=== PATIENT | female | born 1965 | race Caucasian/White ===

== ENCOUNTER 2019-05-22 06:23 | Emergency (ER) | payer BC ==
[~2019-05-22] VITALS: Ht 160 cm; Wt 81.2 kg
[~2019-05-22 06:23] MED LIST: CITALOPRAM HBR20 MG PO; DIOVAN HCT 1601 EACH PO; HYDROXYCHLOROQ200 MG PO; METOPROLOL SUCC25 MG PO; ZANTAC150 MG PO
[2019-05-22] MEDS ORDERED: NAPROXEN500 MG PO (06:33)
[2019-05-22] MEDS: ONDANSETRON HCL INJ 2MG/ML 2ML 2 MG/ML VIAL IV STA (06:51)
[2019-05-22] MEDS: KETOROLAC TROMETHAMINE 30 MG/ML VIAL IV STA (06:51)
[2019-05-22 07:06] LABS: BASOPHILS % 0.5 % (0.0-1.0); EOSINOPHILS % 0.7 % (0.0-6.0); HEMATOCRIT 37.5 % (34.2-44.1); HEMOGLOBIN 12.3 g/dL (12.0-16.0); LYMPHOCYTES # (AUTO) 0.6 (1.0-3.2); LYMPHOCYTES % 12.6 % (18.0-39.1); MEAN CORPUSCULAR HEMOGLOBIN 30.4 pg (28-32); MEAN CORPUSCULAR HGB CONC 32.8 g/dL (31-35); MEAN CORPUSCULAR VOLUME 92.8 fL (81-99); MONOCYTES % 0.5 % (4.4-11.3); NEUTROPHILS # (AUTO) 3.7 (2.1-6.9); PLATELET COUNT 197 x10e3/uL (140-360); RED BLOOD COUNT 4.04 x10e6/uL (3.6-5.1); RED CELL DISTRIBUTION WIDTH 12.8 % (11.7-14.4)
[2019-05-22 07:14] LABS: BILIRUBIN,URINE MODERATE (NEGATIVE); CLARITY,URINE CLOUDY (CLEAR); COLOR,URINE RED (YELLOW); KETONES,URINE TRACE (NEGATIVE); LEUKOCYTE ESTERASE ,URINE LARGE (NEGATIVE); NITRITE,URINE POSITIVE (NEGATIVE); PROTEIN,URINE DIPSTICK 3+ (NEGATIVE); URINE UROBILINOGEN 4 mg/dL (0.2 - 1)
--- NOTE | 2019-05-22 07:18 | Diagnostic Imaging Report ---
EXAMINATION: CT of the abdomen and pelvis without contrast. TECHNIQUE: Spiral CT images of the abdomen and pelvis were performed from the lung bases to the lesser trochanters. No intravenous contrast was given per renal stone protocol. Coronal and sagittal reformatted images were obtained. Low dose protocol was utilized. DLP: 593.00 mGy-cm COMPARISON: None. CLINICAL HISTORY:Flank pain DISCUSSION: ABSENCE OF INTRAVENOUS CONTRAST DECREASES SENSITIVITY FOR DETECTION OF FOCAL LESIONS AND VASCULAR PATHOLOGY. ABDOMEN/PELVIS: LOWER THORAX: Unremarkable. HEPATOBILIARY:No focal hepatic lesions. No biliary ductal dilation. Small left lobe hepatic cyst. The gallbladder is normal. SPLEEN: No splenomegaly. PANCREAS: No focal masses or ductal dilatation. ADRENALS: No adrenal nodules. KIDNEYS/URETERS: There is mild left hydronephrosis with perinephric fat stranding caused by a distal right UVJ stone measuring 2-3 mm. PELVIC ORGANS/BLADDER: The bladder is normal. PERITONEUM/RETROPERITONEUM: No free air or fluid. LYMPH NODES: No intra-abdominal,retroperitoneal, pelvic or inguinal lymphadenopathy. VESSELS: Normal GI TRACT: No distention or wall thickening. BONES AND SOFT TISSUES: No bony destructive lesions. Mild multilevel degenerative changes of the spine. No soft tissue abnormalities. IMPRESSION: Mild left hydronephrosis, left perinephric fat stranding and a distal left UVJ stone. Signed by: Dr. Saad Bal DO on 05/22/2019 7:15 AM
[2019-05-22 07:24] LABS: ALANINE AMINOTRANSFERASE 12 IU/L (0-55); ALBUMIN/GLOBULIN RATIO 1.4 (0.8-2.0); ALKALINE PHOSPHATASE 56 IU/L (40-150); ANION GAP 17.1 mmol/L (8-16); BLOOD UREA NITROGEN 28 mg/dL (7-26); BUN/CREATININE RATIO 35 (6-25); CALCIUM 9.3 mg/dL (8.4-10.2); CARBON DIOXIDE 20 mmol/L (22-29); CHLORIDE 107 mmol/L (98-107); EST GLOMERULAR FILTRATION RATE > 60 ML/MIN (60-); GLUCOSE 121 mg/dL (74-118); POTASSIUM 4.1 mmol/L (3.5-5.1); SODIUM 140 mmol/L (136-145)
[2019-05-22 07:26] LABS: AMORPHOUS SEDIMENT,URINE FEW (FEW); BACTERIA,URINE MANY /HPF; EPITHELIAL CELLS,URINE MODERATE /LPF; RBC,URINE >50 /HPF (0-5)
[2019-05-22] MEDS ORDERED: SODIUM CHLORIDE 0.9% 1000ML 1,000 ML ONE (07:49)
[2019-05-22] MEDS ORDERED: CEFTRIAXONE SOD 1 GM/NS 50 ML 50 ML IV ONE (07:50)
[2019-05-22] MEDS ORDERED: TAMSULOSIN HCL 0.4 MG CAP ONE (07:51)
[2019-05-22] MEDS: SODIUM CHLORIDE 0.9% 1000ML 1,000 ML IV ONE (07:55)
[2019-05-22] MEDS: TAMSULOSIN HCL 0.4 MG CAP PO ONE (07:56)
[2019-05-22] MEDS: CEFTRIAXONE SOD 1 GM/NS 50 ML 50 ML IV STA (07:56)
[2019-05-22 09:38] LABS: BAND NEUTROPHILS % (MANUAL) 9 %; LYMPHOCYTES % (MANUAL) 11 % (19-48); NEUTROPHILS % (MANUAL) 80 % (40-74)
[2019-05-22 09:52] LABS: ANISOCYTOSIS SLIGHT; TOXIC GRANULATION SLIGHT
[2019-05-22 09:53] LABS: PLATELET ESTIMATE ADEQUATE; PLATELET MORPHOLOGY COMMENT NORMAL; RBC MORPHOLOGY COMMENT NORMAL
== END 2019-05-22 09:11 | disposition home or self-care (01) ==
LOC: ER 06:23
DX: N20.1 Calculus of ureter (principal); N30.01 Acute cystitis with hematuria; I10 Essential (primary) hypertension
CPT/HCPCS: 36415; 74176; 80053; 81001; 85025; 87086; 87186; 99284; J0696; J1885; J2405; J7030

== ENCOUNTER → 2024-05-23 | Outpatient (RCR) | payer BC ==
[~2024-05-23] MED LIST changes: +NAPROXEN500 MG PO
== END ==
LOC: PT 05-21 15:40
PROVIDERS: ATTEND Podiatrist Foot & Ankle Surgery
DX: M76.62 Achilles tendinitis, left leg (principal); M76.61 Achilles tendinitis, right leg

== ENCOUNTER 2024-06-06 17:00 | Outpatient (RCR) | payer BC | END 2024-06-23 | LOC: PT 17:00 | PROVIDERS: ATTEND Podiatrist Foot & Ankle Surgery | DX: M76.62 Achilles tendinitis, left leg (principal); M76.61 Achilles tendinitis, right leg ==